=== PATIENT | male | born 1955 | race African-American/Black ===

== ENCOUNTER 2016-12-18 06:20 | Day surgery (SDC) | payer OTHER ==
[2016-12-15 10:22] VITALS: BMI 31.8
[2016-12-18] MEDS ORDERED: TAMSULOSIN HCL 0.4 MG CAP.ER.24H (FP) ONE (06:51)
[2016-12-18] MEDS ORDERED: PROPOFOL 20 ML ONE (07:54)
[2016-12-18] MEDS ORDERED: ROCURONIUM BROMIDE 50 MG/5 ML VIAL ONE ×2 (07:54→08:59)
[2016-12-18] MEDS ORDERED: MIDAZOLAM HCL 2 MG/2 ML SINGLE DOSE VIAL ONE ×2 (07:54)
[2016-12-18] MEDS ORDERED: ceFAZolin SODIUM 1 GM VIAL ONE (08:14)
[2016-12-18] MEDS ORDERED: DEXAMETHASONE SOD PHOSPHATE 4 MG/1 ML VIAL ONE (08:24)
[2016-12-18] MEDS ORDERED: ONDANSETRON 4 MG/2 ML VIAL ONE ×2 (08:24→10:16)
[2016-12-18] MEDS ORDERED: NEOSTIGMINE METHYLSULFATE 0.5 MG/ML - 10 ML MDV ONE (10:15)
[2016-12-18] MEDS ORDERED: GLYCOPYRROLATE 0.2 MG/1 ML VIAL ONE (10:16)
[2016-12-18] MEDS ORDERED: ONDANSETRON 4 MG/2 ML VIAL IVPUSH PRN (10:53)
[2016-12-18] MEDS ORDERED: oxyCODONE HCL 5 MG TABLET PO PRN (10:53)
[2016-12-18] MEDS ORDERED: LACTATED RINGERS SOLUTION 1,000 ML IV SCH (11:00)
[2016-12-18] MEDS: KETOROLAC TROMETHAMINE 30 MG/1 ML VIAL ONE ×2 (11:05→11:20)
[2016-12-18 13:45] VITALS: TEMP 98
[2016-12-18 15:16] VITALS: BP 118/65; PULSE 69
--- NOTE | 2016-12-18 18:32 | OP ---
DATE OF OPERATION: 12/18/2016 PREOPERATIVE DIAGNOSIS: Right inguinal hernia, suspect left inguinal hernia. POSTOPERATIVE DIAGNOSIS: Bilateral indirect inguinal hernias. PROCEDURE: Bilateral laparoscopic inguinal hernia repaired with mesh. OPERATING SURGEON: Petra Shepherd MD EARLY CHILDHOOD ASSOCIATE: Abhijit Castro MD ANESTHESIA: Alyssa Whitt MD (general) HISTORY: This is a 61-year-old man admitted to the hospital for bilateral laparoscopic inguinal hernia repair. Indications, alternatives, and possible complications reviewed. Consent obtained. DESCRIPTION OF PROCEDURE: With the patient in supine position under general anesthesia, the abdomen was prepped and draped in the usual sterile fashion using chlorhexidine. A small infraumbilical incision was made on the right side just off to the right of the midline. The incision was deepened into the large subcutaneous space. The anterior rectus sheath was identified and incised. The rest of the muscle fibers were retracted laterally in both directions. exposing the preperitoneal space. Dissecting balloon was advanced in the preperitoneal space toward the pubis. The balloon was inflated, creating a dissection. The balloon was removed leaving the structural collar in place. The preperitoneal space was then inflated to an adequate pressure and volume using CO2 gas. The camera lens was passed through this port and the preperitoneal space visualized. Under direct vision, a 11mm port was placed in the midline midway between the umbilicus and the pubis. The operating instruments were passed through this port. Exploration noted the preperitoneal space allowed recognition of the anatomy. There was a large indirect component noted on the right. There was a smaller obvious indirect component noted on the left. There were no direct femoral components noted. Considering the large hernia on the right, PT port was placed in the left lower quadrant. Using 2 graspers, the cord was skeletonized of its cremasteric fibers , reducing the large sac. The right side was repaired using a piece of 4-inch x 6-inch Parietex mesh. The mesh was sharma holed in place in the preperitoneal space. It was fashioned on the right side with counter-palpation and AbsorbaTack. The mesh was placed anteriorly to the anterior abdominal wall. The mesh was fixed superiorly to the iliopubic tract. The mesh was fixed anteriorly to Tony ligament and the pubic tubercle. The sharma hole leaf was wrapped around a cord and tacked in place, reconstructing the internal ring. Now, directing our attention to the left side, the smaller, indirect component was reduced with skeletonization of the cord. The left side was repaired with the same mesh and technique as described above for the right. After completion of the repair, the mesh was noted to overlap in the midline. Adequate hemostasis was ensured. All ports were removed and the gas was allowed to escape from the preperitoneal space. The fascia at both the umbilicus and the midline regions was closed using interrupted No. 1 Vicryl sutures. All skin wounds were closed using subcuticular 4-0 Biosyn sutures. NEEDLE AND INSTRUMENT COUNT: Correct. ESTIMATED BLOOD LOSS: Minimal. SPECIMENS: None. DRAINS: None. IMPLANT: Parietex mesh x2. The patient tolerated the procedure and the procedure was terminated. PETRA SHEPHERD M.D. [id number] MTDD
--- NOTE | 2016-12-21 11:56 | HP ---
DATE OF ADMISSION: 12/18/2016 DATE OF DICTATION: 10/01/2016 Patient to be admitted to the [facility] for hernia surgery in the near future, date to be determined. HISTORY: A 61-year-old man admitted to the hospital for bilateral laparoscopic inguinal hernia surgery with mesh. Patient had recently developed 2 bouts of a painful mass at the level of the right groin. Each time, it spontaneously reduced on its own. On examination, he has an obvious right inguinal hernia. He also has a significant attenuation of the left groin and the suspicion of a left inguinal hernia as well. No underlying GI, , or respiratory complaints to suggest predisposition to hernia formation. Patient's past medical history is significant for diabetes and hypertension. No known history of heart disease, respiratory renal or hepatic insufficiency. PAST SURGICAL HISTORY: Nil. ALLERGIES: No known medication allergies. CURRENT MEDICATIONS: Metformin, losartan. SOCIAL HISTORY: Negative tobacco. Positive alcohol, approximately 1 drink weekly. FAMILY HISTORY: No significant history apart from 1 sibling with a brain neoplasia and another sibling with diabetes. REVIEW OF SYSTEMS: Otherwise nil. PHYSICAL EXAMINATION: Patient examined in erect, supine position. There is a small to moderate appreciable right inguinal hernia. It is reducible. The left groin is significant for attenuation of the musculature but no obvious herniation. The testes are unremarkable. IMPRESSION: Physical exam and history consistent with right inguinal hernia. Suspect left inguinal hernia. PLAN: Bilateral laparoscopic inguinal hernia repair with mesh. Indications, alternatives, possible complications reviewed. Consent obtained. Patient to be seen preoperatively by Dr. Alden Gaona. Please refer to his notes for those medical details. Tarik [id number] cc: Alden Gaona MD
== END 2016-12-18 14:35 | disposition home or self-care (01) ==
LOC: FASU 06:20
PROVIDERS: ATTEND Surgery
PROC: 0YUA4JZ Supplement Bilateral Inguinal Region with Synthetic Substitute, Percutaneous Endoscopic Approach (ICD-10-PCS; principal; 2016-12-18 08:00)
DX: K40.20 Bilateral inguinal hernia, without obstruction or gangrene, not specified as recurrent (principal)
CPT/HCPCS: 94760